=== PATIENT | male | born 1960 | race Caucasian/White ===

== ENCOUNTER 2022-02-27 20:57 | Inpatient (IN) ==
[2022-02-27] MEDS ORDERED: Nitroglycerin 1 INCH/GM PACKET TP ONE (21:03)
[2022-02-27] MEDS ORDERED: Aspirin 81 MG TAB.CHEW PO ONE (21:03)
[2022-02-27 21:19] LABS: Hematocrit 42.9 % (37.5-50.1); Mean Corpuscular HGB Conc 32.6 g/dL (31.6-35.5); Mean Corpuscular Hemoglobin 29.4 pg (28.0-33.3); Mean Corpuscular Volume 90.1 fL (83.0-100.0); Mean Platelet Volume 9.4 fL (9.4-12.4); Platelet Count 255 K/mcL (140-400); Red Blood Count 4.76 M/mcL (4.19-5.50); Red Cell Distribution Width 14.4 % (11.5-14.5); White Blood Count 18.4 K/mcL (4.3-11.1)
[2022-02-27 21:31] LABS: Anisocytosis 1+ (Not Present); Lymphocytes # 5.9 K/mcL (0.6-4.6); Monocytes # 0.7 K/mcL (0.0-1.3); Neutrophils # 11.8 K/mcL (1.6-8.9)
[2022-02-27 21:32] LABS: Platelet Estimate Normal (Normal); Smudge Cells Present (Not Present); Stomatocytes 1+ (Not Present)
[2022-02-27 21:34] LABS: Toxic Vacuolation Present (Not Present)
[2022-02-27 21:39] LABS: INR 1.1; Prothrombin Time 12.5 Seconds (9.4-12.1)
[2022-02-27 21:40] LABS: Alanine Aminotransferase 19 Units/L (7-52); Albumin 4.4 g/dL (3.5-5.7); Albumin/Globulin Ratio 1.6 (1.1-2.2); Alkaline Phosphatase 56 Units/L (34-104); Aspartate Amino Transferase 16 Units/L (13-39); BUN/Creatinine Ratio 11 (6-26); Bilirubin,Total 0.7 mg/dL (0.3-1.0); Blood Urea Nitrogen 13 mg/dL (8-23); Calcium 9.1 mg/dL (8.6-10.3); Carbon Dioxide 28 mEq/L (23-29); Chloride 99 mEq/L (98-107); Globulin 2.8 g/dL (2.4-3.5); Glucose 94 mg/dL (70-105); Magnesium 1.8 mg/dL (1.6-2.6); Osmolality,Calculated 280 (280-300); Phosphorous 2.8 mg/dL (2.7-4.5); Potassium 3.9 mEq/L (3.5-5.1); Sodium 135 mEq/L (136-145); Total Protein 7.2 g/dL (6.4-8.9); eGFR For African Americans > 60 (> 60); eGFR For Non-African Americans > 60 (> 60)
[2022-02-27 21:41] LABS: Troponin I 0.03 ng/mL (< 0.04)
[2022-02-27 21:42] LABS: Activated Partial Thrombo Time 32.9 Seconds (26.0-36.0)
[2022-02-27] MEDS ORDERED: Isovue-370 500 ML BOTTLE IVP ONE (21:48)
[2022-02-27] MEDS ORDERED: cefTRIAXone 1,000 MG in 0.9 % Sodium Chloride Mini Bag 100 ML IVPB ONE (22:11)
[2022-02-27] MEDS ORDERED: methylPREDNISolone 125 MG/2 ML VIAL IVP ONE (23:17)
[2022-02-28] MEDS ORDERED: 0.9 % Sodium Chloride 1,000 ML IV ONE ×2 (00:17→01:30)
[2022-02-28] MEDS ORDERED: Albuterol 2.5 MG/3 ML NEBULIZER IH ONE (00:20)
[2022-02-28] MEDS ORDERED: methylPREDNISolone 125 MG/2 ML VIAL IVP ONE (01:30)
[2022-02-28] MEDS ORDERED: Nitroglycerin 0.4 MG TAB.SUBL SL PRN (01:30)
[2022-02-28] MEDS ORDERED: Naloxone 0.4 MG/ML INJ IVP PRN (01:30)
[2022-02-28] MEDS ORDERED: Ondansetron ODT 4 MG TAB.RAPDIS PO PRN (01:38)
[2022-02-28] MEDS: *HR* HYDROcodone/Acet 5/325 mg TABLET PO PRN ×2 (02:13→20:21)
[2022-02-28 08:27] LABS: Basophils % 0.2 %; Hematocrit 39.2 % (37.5-50.1); Hemoglobin 12.7 g/dL (12.9-16.9); Immature Granulocytes % 0.5 % (0-4); Lymphocytes # 5.9 K/mcL (0.6-4.6); Lymphocytes % 33.9 %; Mean Corpuscular HGB Conc 32.4 g/dL (31.6-35.5); Mean Corpuscular Hemoglobin 29.5 pg (28.0-33.3); Mean Corpuscular Volume 91.2 fL (83.0-100.0); Mean Platelet Volume 9.8 fL (9.4-12.4); Monocytes # 0.5 K/mcL (0.0-1.3); Platelet Count 245 K/mcL (140-400); Red Cell Distribution Width 14.6 % (11.5-14.5); Segmented Neutrophils % 62.4 %; White Blood Count 17.4 K/mcL (4.3-11.1)
[2022-02-28 08:28] LABS: Neutrophils # 10.9 K/mcL (1.6-8.9)
[2022-02-28 08:31] LABS: BUN/Creatinine Ratio 13 (6-26); Blood Urea Nitrogen 15 mg/dL (8-23); Calcium 8.4 mg/dL (8.6-10.3); Carbon Dioxide 28 mEq/L (23-29); Chloride 101 mEq/L (98-107); Glucose 112 mg/dL (70-105); Osmolality,Calculated 284 (280-300); Potassium 4.2 mEq/L (3.5-5.1); Sodium 136 mEq/L (136-145); eGFR For African Americans > 60 (> 60); eGFR For Non-African Americans > 60 (> 60)
[2022-02-28 08:48] LABS: Platelet Estimate Normal (Normal); Reactive Lymphocytes Present (Not Present)
[2022-02-28] MEDS: Budesonide/Formoterol 160/4.5 1 PUFF INH IH SCH ×2 (09:37→22:01)
[2022-02-28] MEDS: Furosemide 20 MG TABLET PO SCH (10:07)
[2022-02-28] MEDS: Losartan/HCTZ 50-12.5 TABLET PO SCH (10:07)
[2022-02-28] MEDS: Aspirin 81 MG TAB.CHEW PO SCH (10:07)
[2022-02-28] MEDS: Tiotropium 10 INH DOSE IH SCH (10:09)
[2022-02-28] MEDS: UMECLIDINIUM BRM IH SCH (10:47)
[2022-02-28] MEDS: VILANTEROL TR IH SCH (10:47)
[2022-02-28] MEDS: Metoprolol 100 MG TABLET PO SCH ×2 (11:03→20:11)
[2022-02-28] MEDS: methylPREDNISolone 125 MG/2 ML VIAL IVP SCH ×2 (17:02→23:48)
[2022-02-28] MEDS ORDERED: Metoprolol XL (24 HR) Succ 50 MG TAB.ER.24H PO SCH (18:00)
[2022-02-28] MEDS: amLODIPine 5 MG TABLET PO SCH (18:37)
[2022-02-28] MEDS ORDERED: cefTRIAXone 2,000 MG in 0.9 % Sodium Chloride 20 ML IVPB SCH (23:00)
[2022-02-28] MEDS: cefTRIAXone 2,000 MG in 0.9 % Sodium Chloride 20 ML IVP SCH (23:46)
[2022-03-01] MEDS: *HR* Enoxaparin 40 MG/0.4 ML SYRINGE SQ SCH (05:49)
[2022-03-01 07:31] LABS: Hematocrit 40.6 % (37.5-50.1); Hemoglobin 13.3 g/dL (12.9-16.9); Mean Corpuscular HGB Conc 32.8 g/dL (31.6-35.5); Mean Corpuscular Hemoglobin 29.7 pg (28.0-33.3); Mean Corpuscular Volume 90.6 fL (83.0-100.0); Mean Platelet Volume 9.5 fL (9.4-12.4); Platelet Count 242 K/mcL (140-400); Red Blood Count 4.48 M/mcL (4.19-5.50); Red Cell Distribution Width 14.5 % (11.5-14.5); White Blood Count 19.2 K/mcL (4.3-11.1)
[2022-03-01 07:47] LABS: BUN/Creatinine Ratio 19 (6-26); Blood Urea Nitrogen 19 mg/dL (8-23); Calcium 8.7 mg/dL (8.6-10.3); Carbon Dioxide 30 mEq/L (23-29); Chloride 101 mEq/L (98-107); Glucose 127 mg/dL (70-105); Osmolality,Calculated 290 (280-300); Potassium 4.3 mEq/L (3.5-5.1); Sodium 138 mEq/L (136-145); eGFR For African Americans > 60 (> 60); eGFR For Non-African Americans > 60 (> 60)
[2022-03-01] MEDS: Losartan/HCTZ 50-12.5 TABLET PO SCH (08:52)
[2022-03-01] MEDS: Aspirin 81 MG TAB.CHEW PO SCH (08:52)
[2022-03-01] MEDS: Metoprolol 100 MG TABLET PO SCH ×2 (08:52→19:32)
[2022-03-01] MEDS: methylPREDNISolone 125 MG/2 ML VIAL IVP SCH ×3 (08:53→23:58)
[2022-03-01] MEDS: Furosemide 20 MG TABLET PO SCH (08:53)
[2022-03-01] MEDS ORDERED: PHENELZINE 15 MG PO SCH (09:00)
[2022-03-01] MEDS: Tiotropium 10 INH DOSE IH SCH (09:27)
[2022-03-01] MEDS: Budesonide/Formoterol 160/4.5 1 PUFF INH IH SCH ×2 (09:27→21:50)
[2022-03-01] MEDS: UMECLIDINIUM BRM IH SCH (12:23)
[2022-03-01] MEDS: VILANTEROL TR IH SCH (12:23)
[2022-03-01] MEDS ORDERED: Perflutren Lipid Microsphere 1.3 ML in 0.9 % Sodium Chloride 8.7 ML IVP PRN (15:41)
[2022-03-01] MEDS: amLODIPine 5 MG TABLET PO SCH (17:01)
[2022-03-01] MEDS: *HR* HYDROcodone/Acet 5/325 mg TABLET PO PRN (22:41)
[2022-03-01] MEDS: cefTRIAXone 2,000 MG in 0.9 % Sodium Chloride 20 ML IVP SCH (23:56)
[2022-03-02] MEDS: *HR* Enoxaparin 40 MG/0.4 ML SYRINGE SQ SCH (06:21)
[2022-03-02] MEDS: Metoprolol 100 MG TABLET PO SCH (06:54)
[2022-03-02 07:02] LABS: Hematocrit 42.4 % (37.5-50.1); Hemoglobin 13.4 g/dL (12.9-16.9); Mean Corpuscular HGB Conc 31.6 g/dL (31.6-35.5); Mean Corpuscular Hemoglobin 28.9 pg (28.0-33.3); Mean Corpuscular Volume 91.6 fL (83.0-100.0); Mean Platelet Volume 9.7 fL (9.4-12.4); Platelet Count 268 K/mcL (140-400); Red Blood Count 4.63 M/mcL (4.19-5.50); Red Cell Distribution Width 14.6 % (11.5-14.5); White Blood Count 21.5 K/mcL (4.3-11.1)
[2022-03-02 08:27] LABS: BUN/Creatinine Ratio 23 (6-26); Blood Urea Nitrogen 23 mg/dL (8-23); Calcium 8.7 mg/dL (8.6-10.3); Carbon Dioxide 33 mEq/L (23-29); Chloride 99 mEq/L (98-107); Glucose 123 mg/dL (70-105); Osmolality,Calculated 291 (280-300); Potassium 4.1 mEq/L (3.5-5.1); Sodium 138 mEq/L (136-145); eGFR For African Americans > 60 (> 60); eGFR For Non-African Americans > 60 (> 60)
[2022-03-02] MEDS: Losartan/HCTZ 50-12.5 TABLET PO SCH (08:27)
[2022-03-02] MEDS: methylPREDNISolone 125 MG/2 ML VIAL IVP SCH ×2 (08:28→17:11)
[2022-03-02] MEDS: Aspirin 81 MG TAB.CHEW PO SCH (08:28)
[2022-03-02] MEDS: Furosemide 20 MG TABLET PO SCH (08:28)
[2022-03-02] MEDS: Tiotropium 10 INH DOSE IH SCH (09:00)
[2022-03-02] MEDS: Budesonide/Formoterol 160/4.5 1 PUFF INH IH SCH (09:00)
[2022-03-02] MEDS: VILANTEROL TR IH SCH (10:30)
[2022-03-02] MEDS: UMECLIDINIUM BRM IH SCH (10:30)
[2022-03-02 14:47] VITALS: BP 146/82; PULSE 86; RESP 18; TEMP 98.4; O2SAT 96
== END 2022-03-02 17:00 | disposition home or self-care (01) | DRG 139 ==
LOC: EMEROOPIK 20:57 → INPPIK 20:57 → SUATTDRO 02-28 01:00 → INPPIK 02-28 01:10
PROVIDERS: ADMIT Family Medicine; ATTEND Family Medicine